=== PATIENT | male | born 1985 | race Caucasian/White ===

== ENCOUNTER 2021-01-02 08:04 | Emergency (ER) | payer SELFPAY ==
--- NOTE | 2021-01-02 08:06 | ECG_ITS ---
[facility] Test Date: 2021-01-02 Pat Name: Nithin Tom Department: Room: Gender: Male Chick Sexer: : 1985 Requested By: Paras Medina Order Number: [id number] Reading MD: REYNA ARREOLA Measurements Intervals [place] Rate: 74 P: 45 NH: 170 QRS: 73 QRSD: 89 T: 77 QT: 299 QTc: 333 Interpretive Statements SINUS RHYTHM No previous ECG available for comparison Electronically Signed On 01-02-2021 20:13:32 CDT by REYNA ARREOLA [email or web address]
[2021-01-02 08:25] VITALS: BP 127/85; PULSE 195; RESP 18; TEMP 36.8; O2SAT 99; BMI 28.8
--- NOTE | 2021-01-02 08:27 | W.ED.GENADLT ---
HPI - General Adult General: Chief complaint: Chest Pain Stated complaint: FAST HEART RATE Time Seen by Provider: 01/02/21 08:23 Source: patient Mode of arrival: ambulatory Limitations: no limitations History of Present Illness: HPI narrative: 35-year-old male states he has had periods of palpitations at times since he was 16. He states that typically by time he gets hospital and been resolved. He states that he has had palpitations with his heart racing since last night that is not resolved this time. He states this is along with several happen. His heart rate here is in the 190s. Does appear to be SVT. He states he has some mild chest pain. Denies any shortness of breath. Denies any worsening improving factors. Associated symptoms: Reports palpitations; Deny dyspnea, headache(s), nausea, rash or vomiting Review of Systems Const: Denies: fever(s), chills, body aches or change in appetite Eyes: Denies: blurry vision or eye discomfort ENMT: Denies: throat pain or dental pain Card: Reports: palpitations Resp: Denies: dyspnea GI: Denies: abdominal pain, nausea, vomiting or diarrhea : Denies: dysuria Musc: Denies: neck pain or back pain Skin/Breast: Denies: rash Neuro: Denies: headache(s) Psych: Denies: depression Kp/Lymph: Denies: easy bruising All/Imm: Denies: urticaria Physical Exam Const: COMMON NORMALS: no acute distress, patient oriented x3 and healthy appearing HENMT: COMMON NORMALS: normocephalic and atraumatic HEAD & SCALP: normocephalic and atraumatic Eye: COMMON NORMALS: Equal, round and reactive pupils present and EOMs intact bilaterally PUPIL: Yes Equal, round and reactive pupils present Neck/C-Spine: COMMON NORMALS: full ROM and supple Chest: COMMONS NORMALS: normal inspection of the chest and normal palpation of entire chest wall Resp: COMMON NORMALS: normal respiratory effort, No retractions, No use of accessory muscles and clear to auscultation bilaterally AUSCULTATION: clear to auscultation bilaterally Cardio: COMMON NORMALS: regular rhythm and No murmurs present (Cardio) RATE: tachycardic RHYTHM: regular rhythm GI: COMMON NORMALS: Normal to inspection, nondistended, normoactive bowel sounds present, Soft to palpation, non-tender and no masses PALPATION: Yes Soft to palpation Extremity: COMMON NORMALS: normal to inspection and full ROM Neuro: COMMON NORMALS: patient oriented x3, moves all extremities and no focal motor deficits Psych: COMMON NORMALS: mental status grossly normal, Normal thought process present and cooperative THOUGHT PROCESS: Normal thought process present Skin: COMMON NORMALS: no rashes or lesions noted and no wounds GENERAL SKIN EXAM: no rashes or lesions noted Course Vital Signs: Vital signs: Vital Signs Temperature 98.3 F 01/02/21 08:25 Pulse Rate 87 01/02/21 08:36 Respiratory Rate 24 H 01/02/21 08:36 Blood Pressure 120/74 01/02/21 08:36 Pulse Oximetry 96 01/02/21 08:36 MDM - General Adult MDM Narrative: Medical decision making narrative: Patient presents with SVT. He was converted here and has been well-appearing. He has had no chest pain and has been in normal sinus rhythm. We will set him follow-up with cardiology he is return if worsening. He understands agrees to plan. Lab Data: Labs: Lab Results 01/02/21 01/02/21 Range/Units 08:25 08:25 WBC 16.0 H (4.0-10.0) 10^3/ uL RBC 5.11 (4.1-5.3) 10^6/u L Hgb 16.4 (11.7-16.6) g/dL Hct 46.4 (42.0-52.0) % MCV 90.8 (80-94) fL MCH 32.1 (28.0-34.0) pg MCHC 35.3 (30.0-36.0) g/dL RDW 11.9 L (12.1-15.1) % Plt Count 277 (130-400) 10^3/c mm MPV 9.2 (7.4-10.4) fL Neut % (Auto) 69.3 % Lymph % (Auto) 19.0 % [place] % (Auto) 6.7 % Eos % (Auto) 4.2 % Baso % (Auto) 0.6 % Neut # (Auto) 11.10 H (1.8-7.7) 10^3/u L Lymph # (Auto) 3.0 (0.8-4.8) 10^3/u L [place] # (Auto) 1.1 H (0.2-0.9) 10^3/u L Eos # (Auto) 0.7 (0.0-0.8) 10^3/u L Baso # (Auto) 0.1 (0.0-0.1) 10^3/u L Nucleated RBC % (a uto) 0 % Nucleated RBCs # 0.0 /100WBC Sodium 136 (136-145) mmol/L Potassium 3.9 (3.5-5.1) mmol/L Chloride 101 (98-107) mmol/L Carbon Dioxide 26 (22-29) mmol/L Anion Gap 12.9 (5-19) BUN 15 (6-20) mg/dL Creatinine 1.0 (0.7-1.2) mg/dL Glucose 102 (65-115) mg/dL Total Bilirubin 0.4 (0.15-1.2) mg/dL AST 17 (0-40) U/L ALT < 5 (0-41) U/L Total Protein 6.9 (6.6-8.7) g/dL Albumin 4.1 (3.5-5.2) g/dL Globulin 2.8 (1.3-4.6) g/dL EKG Data^: EKG 1: Attestation: I personally reviewed and interpreted this EKG as follows: EKG interpretation date: 01/02/21 EKG interpretation time: 08:28 Interpretation: svt hr [address] or t wave abnormalities qrs 83 qtc 320 EKG 2: Attestation: I personally reviewed and interpreted this EKG as follows: EKG interpretation date: 01/02/21 EKG interpretation time: 08:32 Interpretation: nsr hr [address] or t wave anormalities qrs 89 qtc 326 Discharge Plan Discharge Patient Disposition: Home Clinical Impression: SVT (supraventricular tachycardia) Condition: Stable Discharge Orders: Discharge ED (Routine); Ordered 01/02/21 Ordered By: Paras Medina Referrals: Kyle Olivera [Primary Care Provider] - Ruba Wick MD [Physician] - 1-3 days Discharge Diet: Advance as tolerated Discharge Activity: Resume usual activity Patient Instructions: Supraventricular Tachycardia (ED), Valsalva Maneuver (ED) Coding Level of Care Code ED Visiting Teacher for Chg Fwd Exam Comprehensive
[2021-01-02 08:36] VITALS: BP 120/74; PULSE 87; RESP 24; O2SAT 96
[2021-01-02] MEDS: adenosine 3 mg/mL SDV 2mL 6 MG IVP (08:36)
[2021-01-02] MEDS: sodium chloride 0.9% 1,000 ML 999 ML IV (08:36)
[2021-01-02 08:38] LABS: Basophils # 0.1 10^3/uL (0.0-0.1); Basophils % 0.6 %; Eosinophils # 0.7 10^3/uL (0.0-0.8); Eosinophils % 4.2 %; Hematocrit 46.4 % (42.0-52.0); Hemoglobin 16.4 g/dL (11.7-16.6); Mean Corpuscular HGB Conc 35.3 g/dL (30.0-36.0); Mean Corpuscular Hemoglobin 32.1 pg (28.0-34.0); Mean Corpuscular Volume 90.8 fL (80-94); Mean Platelet Volume 9.2 fL (7.4-10.4); Monocytes # 1.1 10^3/uL (0.2-0.9); Monocytes % 6.7 %; Neutrophils % 69.3 %; Nucleated Red Blood Cells % 0 %; Platelet Count 277 10^3/cmm (130-400); Red Blood Count 5.11 10^6/uL (4.1-5.3); Red Cell Distribution Width 11.9 % (12.1-15.1)
[2021-01-02 08:58] LABS: Alanine Aminotransferase < 5 U/L (0-41); Albumin Level 4.1 g/dL (3.5-5.2); Alkaline Phosphatase 134 IU/L (40-130); Anion Gap 12.9 (5-19); Aspartate Amino Transferase 17 U/L (0-40); Blood Urea Nitrogen 15 mg/dL (6-20); Calcium 8.4 mg/dL (8.5-10.5); Carbon Dioxide 26 mmol/L (22-29); Chloride 101 mmol/L (98-107); Globulin 2.8 g/dL (1.3-4.6); Glomerular Filtration Rate 85.5 mL/min (90-130); Glucose 102 mg/dL (65-115); Osmolality Calculated 283 mOsm/kg (285-295); Potassium 3.9 mmol/L (3.5-5.1); Sodium 136 mmol/L (136-145); Total Bilirubin 0.4 mg/dL (0.15-1.2); Total Protein 6.9 g/dL (6.6-8.7)
[2021-01-02 09:43] VITALS: BP 100/68; PULSE 89; RESP 18; O2SAT 97
--- NOTE | 2021-01-03 12:00 | DCPLANNER ---
assistant manager had message to schedule a follow up appointment for patient with [facility]. assistant manager called [facility], spoke with Maria D, gave clinic patients information. A follow up appointment was scheduled for Sunday, January 12, 2021 at 9:[address] Wick. assistant manager called patient and gave him the appointment information.
--- NOTE | 2021-01-20 12:25 | DCPLANNER ---
Patient had a follow up appointment scheduled for 01.12.21 with [facility] - patient did attend appointment.
== END 2021-01-02 09:44 | disposition home or self-care (01) ==
PROVIDERS: Emergency Provider Emergency Medicine; PCP Family Medicine
DX: I47.1 Supraventricular tachycardia (principal)
CPT/HCPCS: 80053; 85025; 93005; 96361; 96374; 99284; J0153; J7030